=== PATIENT | male | born 1955 | race Caucasian/White ===

== ENCOUNTER 2023-01-21 09:12 | Emergency (ER) | payer OTHER ==
[~2023-01-21] VITALS: Ht 175.3 cm; Wt 89.4 kg
[2023-01-21 09:27] VITALS: BP_SYST 153; PULSE 69; RESP 16; TEMP 97.8; O2SAT 98
[2023-01-21] MEDS ORDERED: TRAM50TA2 PO (10:49)
[2023-01-21] MEDS ORDERED: NAPR-688 PO (10:49)
== END 2023-01-21 11:04 | disposition home or self-care (01) ==
LOC: SED 09:12
DX: S16.1XXA Strain of muscle, fascia and tendon at neck level, initial encounter (principal); S20.212A Contusion of left front wall of thorax, initial encounter; Z79.899 Other long term (current) drug therapy; V49.49XA Driver injured in collision with other motor vehicles in traffic accident, initial encounter; Y93.89 Activity, other specified; Y92.89 Other specified places as the place of occurrence of the external cause; Y99.8 Other external cause status
CPT/HCPCS: 99282

== ENCOUNTER 2023-01-22 11:23 | Emergency (ER) | payer OTHER ==
[~2023-01-22] VITALS: Ht 175.3 cm; Wt 89.4 kg
[~2023-01-22 11:23] MED LIST: NAPR-688 PO; TRAM50TA2 PO
[2023-01-22 11:25] VITALS: BP_SYST 186; PULSE 67; RESP 18; TEMP 98.3; O2SAT 98
[2023-01-22 13:34] VITALS: BP_SYST 155; PULSE 82; RESP 18; TEMP 98.3; O2SAT 98
== END 2023-01-22 13:35 | disposition home or self-care (01) ==
LOC: SED 11:23
DX: S43.402A Unspecified sprain of left shoulder joint, initial encounter (principal); S20.212A Contusion of left front wall of thorax, initial encounter; S09.90XA Unspecified injury of head, initial encounter; I10 Essential (primary) hypertension; Z79.899 Other long term (current) drug therapy; V43.52XA Car driver injured in collision with other type car in traffic accident, initial encounter; Y93.89 Activity, other specified; Y92.89 Other specified places as the place of occurrence of the external cause; Y99.8 Other external cause status
CPT/HCPCS: 70450-TC; 71045; 71100; 76376; 99284